=== PATIENT | male | born 1965 | race Hispanic/Latino ===

== ENCOUNTER 2024-05-19 09:04 | Day surgery (SDC) | payer BC ==
[2024-05-17 11:05] LABS: BASOPHILS # (AUTO) 0.04 K/uL (0.00-0.20); BASOPHILS % (AUTO) 0.6 % (0.0-5.0); EOSINOPHILS # (AUTO) 0.12 K/uL (0.00-0.70); EOSINOPHILS % (AUTO) 1.8 % (0.0-8.0); HEMATOCRIT 45.3 % (42-54); IMMATURE GRANULOCYTE ABSOLUTE 0.03 K/uL (0-1); LYMPHOCYTES # (AUTO) 1.8 K/uL (1.0-4.8); LYMPHOCYTES % (AUTO) 27.3 % (21.0-51.0); MEAN CORPUSCULAR HEMOGLOBIN 31.4 pg (27.0-33.0); MEAN CORPUSCULAR VOLUME 92.4 fL (79-99); MONOCYTES # (AUTO) 0.5 K/uL (0.1-1.0); MONOCYTES % (AUTO) 7.7 % (3.0-13.0); NEUTROPHILS # (AUTO) 4.1 K/uL (1.8-7.7); NEUTROPHILS % (AUTO) 62.1 % (40.0-77.0); PLATELET COUNT (AUTO) 243 K/uL (130-400); RED CELL DISTRIBUTION WIDTH 13.3 % (11.0-15.5); WHITE BLOOD COUNT (AUTO) 6.7 K/uL (4.8-10.8)
[2024-05-17 11:14] LABS: INR 1.06 (0.85-1.15); PROTHROMBIN TIME 11.2 SEC (9.6-11.6)
[2024-05-17 11:15] LABS: PARTIAL THROMBOPLASTIN TIME 29.5 SEC (26.3-35.5)
[2024-05-17 11:16] LABS: CREATININE 1.2 mg/dL (0.5-1.3); POTASSIUM 4.5 mmol/L (3.5-5.1)
[2024-05-17 11:40] VITALS: BP 137/88; PULSE 51; RESP 18; TEMP 97.3
[~2024-05-19] VITALS: Ht 181.6 cm; Wt 84.6 kg
[2024-05-19] VITALS (19 sets, daily range): BP systolic 104–147; BP diastolic 65–87; PULSE 48–66; RESP 10–20; TEMP 97.3–97.9
[2024-05-19] MEDS ORDERED: proPOFol 10 MG/ML 20ML VIAL IV ONE (11:00)
[2024-05-19] MEDS ORDERED: ePHEDrine SULFate 50 MG/ML AMPULE ONE (11:01)
--- NOTE | 2024-05-19 11:04 | EKG ---
[facility] Test Date: 2024-05-19 Test Time: 09:32:44 Pat Name: JONO BERNSTEIN Department: [facility] Room: [facility] Gender: M Patient Advocate: [id number] : 1965 Requested By: NINA LANDEROS Order Number: [id number] Reading MD: Cyril Barth Measurements Intervals [place] Rate: 53 P: 0 [place]: 0 QRS: -19 QRSD: 117 T: 36 QT: 468 QTc: 441 Interpretive Statements Atrial fibrillation Nonspecific intraventricular conduction delay Low voltage, extremity leads No previous ECG available for comparison Electronically Signed On 05-19-2024 14:50:39 CDT by Cyril Barth Please click the below link to view image of tracing.
[2024-05-19] MEDS ORDERED: AMIO200T68 PO (11:46)
[2024-05-19] MEDS ORDERED: AMLO-257 PO (11:46)
[2024-05-19] MEDS ORDERED: APIX5TAB PO (11:46)
[2024-05-19] MEDS ORDERED: LOSA50TA64 PO (11:46)
--- NOTE | 2024-05-19 12:08 | PRN ---
Procedure Note INDICATION FOR PROCEDURE: Persistent atrial fibrillation PROCEDURE: Cardioversion DATE OF PROCEDURE: 05/19/2024 COMMUNITY SERVICE OFFICER: Dr. Payam Landeros PROCEDURE NOTE: The patient was brought to the day patient area in a fasting state. General anesthesia was provided by the anesthesia service. A single synchronized shock of 200 joules was delivered resulting in sinus rhythm. The patient tolerated the procedure well without complications. IMPRESSION: Persistent atrial fibrillation, status post successful cardioversion PLAN: The patient will be observed and discharged later this morning. He will continue his current medications and follow up with me in the office in approximately two weeks. PAYAM LANDEROS MD May 19, 2024 12:08
--- NOTE | 2024-05-19 12:15 | NUR ---
pt ambulating well to restroom and back tolerating po fluids wel dc home
--- NOTE | 2024-05-19 15:41 | EKG ---
[facility] Test Date: 2024-05-19 Test Time: 11:11:00 Pat Name: JONO BERNSTEIN Department: [facility] Room: Gender: M Marketing Effectiveness Manager: [id number] : 1965 Requested By: NINA LANDEROS Order Number: [id number] Reading MD: Cyril Barth Measurements Intervals [place] Rate: 50 P: 7 AL: 178 QRS: -29 QRSD: 108 T: 4 QT: 499 QTc: 455 Interpretive Statements Sinus rhythm Low voltage, precordial leads Compared to ECG 05/19/2024 09:32:44 Atrial fibrillation no longer present Intraventricular conduction delay no longer present Electronically Signed On 05-20-2024 15:57:52 CDT by Cyril Barth Please click the below link to view image of tracing.
== END 2024-05-19 12:20 | disposition home or self-care (01) ==
LOC: DAH 09:04
PROVIDERS: ATTEND Internal Medicine Cardiovascular Disease
DX: I48.19 Other persistent atrial fibrillation (principal); I10 Essential (primary) hypertension; I25.10 Atherosclerotic heart disease of native coronary artery without angina pectoris; E78.5 Hyperlipidemia, unspecified; G47.33 Obstructive sleep apnea (adult) (pediatric); Z82.3 Family history of stroke; Z82.49 Family history of ischemic heart disease and other diseases of the circulatory system; Z79.899 Other long term (current) drug therapy; Z98.890 Other specified postprocedural states
CPT/HCPCS: 80048; 85025; 85610; 85730; 36415; 92960; 93005 ×2; A4223 ×3; J2704; A4620; A4215; A4222; A4221; A4663; A4216; A4606; 99152; 99153; J3490; G0500

== ENCOUNTER 2025-02-20 05:56 | Day surgery (SDC) | payer BC ==
[2025-02-13 11:06] LABS: IMMATURE GRANULOCYTE ABSOLUTE 0.04 K/uL (0-1); NUCLEATED RED BLOOD CELLS 0.0 % (0.0-0.19); PLATELET COUNT (AUTO) 227 K/uL (130-400); RED BLOOD CELL COUNT(AUTO) 4.68 MIL/uL (4.50-6.20); RED CELL DISTRIBUTION WIDTH 12.9 % (11.0-15.5); WHITE BLOOD COUNT (AUTO) 6.6 K/uL (4.8-10.8)
[2025-02-13 11:12] VITALS: BP 131/75; PULSE 55; RESP 17; TEMP 97.2
[2025-02-13 11:13] LABS: CREATININE 0.9 mg/dL (0.5-1.3); GLOMERULAR FILTR. RATE CALC 98.0 mL/min (>90); GLUCOSE,RANDOM 100.0 mg/dL (70-105); SODIUM SERUM 140.0 mmol/L (136-145); UREA NITROGEN, BLOOD 12.0 mg/dL (7-18)
--- NOTE | 2025-02-13 11:16 | EKG ---
[facility] Test Date: 2025-02-13 Test Time: 10:55:52 Pat Name: JONO BERNSTEIN [facility] Room: Gender: M Toll Line Repairer: [id number] : 1965 Requested By: NINA LANDEROS Order Number: [id number] Reading MD: Herrera Holloway Measurements Intervals [place] Rate: 53 P: 52 [place]: 189 QRS: 0 QRSD: 101 T: 17 QT: 485 QTc: 439 Interpretive Statements Sinus bradycardia Atrial premature complexes Compared to ECG 05/19/2024 11:11:00 Atrial premature complex(es) now present Sinus rhythm no longer present Electronically Signed On 02-13-2025 16:16:16 NURSING SERVICE ADMINISTRATOR by Herrera Holloway Please click the below link to view image of tracing.
[2025-02-13 11:30] LABS: INR 0.97 (0.85-1.15)
[~2025-02-20] VITALS: Ht 157.5 cm; Wt 83.3 kg
[2025-02-20] VITALS (16 sets, daily range): BP systolic 99–144; BP diastolic 60–76; PULSE 54–68; RESP 11–18; TEMP 97.1–97.7
[~2025-02-20 05:56] MED LIST: AMIO200T73 PO; AMLO-257 PO; APIX5TAB PO; LOSA50TA64 PO
[2025-02-20] MEDS: 0.9%NACL 1000ML 1,000 ML IV ONE (06:50)
[2025-02-20] MEDS ORDERED: MIDAZOLAM HCL 1 MG/ML 2ML VIAL ONE (07:00)
[2025-02-20] MEDS ORDERED: HEParin-NS 1,000 UNIT/500 ML 1,000 ML IV ONE (07:15)
[2025-02-20] MEDS ORDERED: SODIUM BICARB 50MEQ 50ML VIAL 50 ML ONE (07:15)
[2025-02-20] MEDS ORDERED: LIDOCAINE HCL 400MG/20ML VIAL ONE (07:15)
[2025-02-20] MEDS ORDERED: GLYCOPYRROLATE 0.2 MG/ML 5 ML VIAL ONE (11:05)
[2025-02-20] MEDS ORDERED: NEOSTIGMINE METHYLSULFATE 1MG/ML IV ONE (11:06)
[2025-02-20] MEDS ORDERED: PANT40TA55 PO (11:12)
[2025-02-20] MEDS ORDERED: SUCR1TAB2 PO (11:12)
[2025-02-20] MEDS: SUCRALFATE 1 GM/10 ML PO ONE (12:20)
== END 2025-02-20 13:38 | disposition home or self-care (01) ==
LOC: DAH 05:56
PROVIDERS: ATTEND Internal Medicine Cardiovascular Disease
DX: I48.19 Other persistent atrial fibrillation (principal); I10 Essential (primary) hypertension; E78.5 Hyperlipidemia, unspecified; G47.33 Obstructive sleep apnea (adult) (pediatric); Z82.3 Family history of stroke; Z83.3 Family history of diabetes mellitus; Z82.49 Family history of ischemic heart disease and other diseases of the circulatory system; Z88.0 Allergy status to penicillin; Z79.899 Other long term (current) drug therapy; Z98.890 Other specified postprocedural states
CPT/HCPCS: 80048; 85025; 85610; 85730; 36415 ×2; 93005; 93656; 85347 ×6; C1894 ×3; C1732 ×3; A4649 ×2; C1760 ×4; C1766; J3010 ×3; J3490 ×7; J7030; J2720; J2250; J2704; J2405; J2710; J2371; A4215; A4221; A4663; A4216; A4606; J1644 ×5; A4223 ×2